=== PATIENT | male | born 1980 | race Caucasian/White ===

== ENCOUNTER → 2020-03-06 | Outpatient (CLI) | payer BC ==
--- NOTE | 2020-03-09 16:28 | SLEEPHOME ---
DATE OF PROCEDURE: 03/06/2020 ORDERED BY: Missy Plata Diagnostic home sleep testing was performed due to concern for the obstructive sleep apnea syndrome. For testing a nocturnal T3 respiratory monitoring device was used. Continuous record was made of pulse, oxygen saturation, airflow, chest and abdominal strain, and body position. 9 hours and 59 minutes of data were reviewed. There were 8 hours and 58 minutes marked as time in bed. During the interval marked time in bed, there were 104 respiratory events identified of 10 seconds in duration or greater for a respiratory event index of 11.6. The events were primarily obstructive; 5 mixed apneas were seen. Baseline pulse rate 75 beats per minute. Pulse rate ranged 48-103. Baseline saturation 93%. Saturations fell to 65%. Testing was performed in both supine and nonsupine positions. IMPRESSION: Abnormal home sleep testing with repetitive respiratory events and oxygen desaturations to 69% with a respiratory event index of 11.6 is consistent with the obstructive sleep apnea syndrome. RECOMMENDATIONS: The patient should be encouraged to undergo formal sleep evaluation.
== END ==
LOC: M SLEEP HO 10:59
PROVIDERS: ATTEND Family Medicine
DX: G47.9 Sleep disorder, unspecified (principal)

== ENCOUNTER → 2020-06-24 | Outpatient (CLI) | payer BC ==
--- NOTE | 2020-08-10 07:20 | SLEEPCENT ---
ORDERED BY: Ginger Whittaker DATE: 06/24/2020 Nocturnal polysomnography was performed for evaluation of sleep physiology in this patient with excessive somnolence and nonrestorative sleep. There was 7 hours and 26 minutes of data reviewed. There was 418 minutes of sleep identified. Sleep latency was normal at 8 minutes. REM sleep was normal at 79.5 minutes. Sleep architecture was fairly good. There were three REM cycles. Some poor progression was seen late in the test. Overall sleep efficiency was 94.8%. The electrocardiogram showed a sinus rhythm with an average heart rate of 68 beats per minute. EEG showed reasonably normal waveforms for wake and sleep. There were 87 respiratory events identified of 10 seconds in duration or greater for an apnea-hypopnea index of 12.5. The events were primarily obstructive, not exclusive to sleep stage, more frequent but not exclusive to the supine posture. Arousals from respiratory events occurred 12.2 times per hour, and oxygen desaturations were seen into the 80s. There was some activity noted in the limb leads, but limb movement arousals were few. IMPRESSIONS: Obstructive sleep apnea syndrome (G47.33). Apnea-hypopnea index 12.5. RECOMMENDATION: The patient should be encouraged to return to the sleep disorder center for pressure therapy. In the interim, alcohol and sedative avoidance should be practiced and caution exercised during the operation of motor vehicles. /esperanza Plata edited: 09/23/2020 [id number] DANA
== END ==
LOC: M SLEEP 06-23 20:00
PROVIDERS: ATTEND Nurse Practitioner Family
DX: G47.33 Obstructive sleep apnea (adult) (pediatric) (principal)

== ENCOUNTER → 2020-08-01 | Outpatient (CLI) | payer BC ==
--- NOTE | 2020-08-07 09:38 | SLEEPCENT ---
DATE: 08/01/2020 ORDERED BY: Dr. Ginger Whittaker Nocturnal polysomnography was performed for the titration of pressure therapy in this patient with obstructive sleep apnea syndrome, apnea-hypopnea index of 12.5. For testing, the patient was fit with [employer] and [employer] Simplus full-face mask of medium size. There was 4 cm of water pressure applied to the circuit, and the lights were extinguished. There was 6 hours and 23 minutes of data reviewed. There was 344.5 minutes of sleep identified. Sleep latency was short at 3.5 minutes. REM latency was short at 59.5 minutes. Sleep architecture improved with pressure therapy. There were four REM cycles noted. Overall sleep efficiency was good at 91.7%. The electrocardiogram showed a sinus rhythm with an average heart rate of 75 beats per minute. EEG showed normal waveforms for wake and sleep. Respiratory events were fully palliated with CPAP at a pressure of +10, and remaining measures of sleep physiology were normal. IMPRESSION: Obstructive sleep apnea syndrome (G47.33). RECOMMENDATION: Nightly use of pressure therapy, 10 cm of water. MTDD
== END ==
LOC: M SLEEP 20:00
PROVIDERS: ATTEND Nurse Practitioner Family
DX: G47.33 Obstructive sleep apnea (adult) (pediatric) (principal)